=== PATIENT | female | born 1995 ===

== ENCOUNTER 2019-02-13 03:51 | Inpatient (IN) | payer OTHER ==
[2019-02-13] MEDS ORDERED: LACTATED RINGERS 2,000 ML ONE (03:56)
[2019-02-13] MEDS: LACTATED RINGERS 1,000 ML IV SCH ×2 (04:00→04:47)
[2019-02-13] MEDS ORDERED: BRETHINE SUB-Q ONE (04:03)
[2019-02-13] MEDS ORDERED: PEPCID IV ONE (04:03)
[2019-02-13] MEDS ORDERED: BRETHINE ONE (04:03)
[2019-02-13] MEDS ORDERED: REGLAN IV ONE (04:03)
[2019-02-13] MEDS ORDERED: BICITRA PO ONE (04:03)
[2019-02-13] MEDS ORDERED: QUELICIN ONE (04:18)
[2019-02-13] MEDS ORDERED: DIPRIVAN 10 MG/ML IV ONE (04:19)
[2019-02-13 04:25] LABS: Basophils # (Auto) 0.1 K/mm3 (0.0-0.1); Basophils % (Auto) 0.5 % (0.0-1.8); Eosinophils # (Auto) 0.1 K/mm3 (0.0-0.4); Eosinophils % (Auto) 0.4 % (0.0-4.3); Hematocrit 35.7 % (30.3-42.9); Lymphocytes # (Auto) 2.2 K/mm3 (1.2-5.4); Lymphocytes % (Auto) 16.5 % (13.4-35.0); Mean Corpuscular HGB Conc 34 % (30-34); Mean Corpuscular Volume 82 fl (79-97); Monocytes # (Auto) 0.5 K/mm3 (0.0-0.8); Monocytes % (Auto) 4.1 % (0.0-7.3); Platelet Count 264 K/mm3 (140-440); Red Blood Count 4.36 M/mm3 (3.65-5.03); Red Cell Distribution Width 15.9 % (13.2-15.2)
[2019-02-13] MEDS ORDERED: PITOCin/NS 20 UNIT/1000ML DRIP 20 UNITS/1,000 ML BAG IV SCH ×2 (05:00→07:00)
[2019-02-13] MEDS ORDERED: ANCEF/STERILE WATER 2 GM/20 ML 2 GM/20 ML SYRINGE IV NR (05:00)
[2019-02-13 05:19] LABS: Amphetamine Screen,Urine PRESUMPTIVE NEGATIVE; Benzodiazepines Screen,Urine PRESUMPTIVE NEGATIVE; Cannabinoid Screen,Urine PRESUMPTIVE NEGATIVE; Cocaine Screen,Urine PRESUMPTIVE NEGATIVE; Methadone Screen,Urine PRESUMPTIVE NEGATIVE; Opiate Screen,Urine PRESUMPTIVE NEGATIVE
--- NOTE | 2019-02-13 05:20 | Anesthesia Day of Surgery ---
Anesthesia Day of Surgery - Day of Surgery Patient Examined: Yes Patient H&P Reviewed: Yes Patient is NPO: Yes
[2019-02-13] MEDS ORDERED: ZOFRAN ONE (05:25)
[2019-02-13] MEDS ORDERED: VERSED ONE (05:26)
[2019-02-13] MEDS ORDERED: BENADRYL ONE (05:26)
[2019-02-13] MEDS ORDERED: TORADOL ONE (05:26)
[2019-02-13 05:32] LABS: Alanine Aminotransferase 11 units/L (7-56); Albumin 2.9 g/dL (3.9-5); BUN/Creatinine Ratio 21; Blood Urea Nitrogen 19 mg/dL (7-17); Calcium 8.7 mg/dL (8.4-10.2); Hemolysis Index 74
[2019-02-13] MEDS ORDERED: DILAUDID ONE ×2 (05:45→05:49)
[2019-02-13] MEDS ORDERED: XYLOCAINE MPF 2% ONE (05:48)
[2019-02-13] MEDS ORDERED: PHENERGAN PR PRN ×2 (06:17→06:30)
[2019-02-13] MEDS ORDERED: SENOKOT PO PRN (06:17)
[2019-02-13] MEDS ORDERED: MYLICON PO PRN (06:17)
[2019-02-13] MEDS ORDERED: NARCAN 0.4 MG/1 ML IV PRN ×2 (06:17→06:30)
[2019-02-13] MEDS ORDERED: MILK OF MAGNESIA PO PRN (06:17)
[2019-02-13] MEDS ORDERED: ZOFRAN IV PRN ×2 (06:17→06:30)
[2019-02-13] MEDS ORDERED: ANUCORT-HC PR PRN (06:17)
[2019-02-13] MEDS ORDERED: TUCKS PAD TP PRN (06:17)
[2019-02-13] MEDS ORDERED: MORPHINE IV PRN ×2 (06:17)
[2019-02-13] MEDS ORDERED: TORADOL IV PRN (06:17)
[2019-02-13] MEDS ORDERED: LANSINOH TP PRN (06:17)
[2019-02-13] MEDS ORDERED: TYLENOL PO PRN (06:17)
--- NOTE | 2019-02-13 06:29 | History and Physical Report ---
History of Present Illness Date of examination: 02/13/19 Date of admission: 02/13/19 04:03 Chief complaint: SIUP at 38 weeks and 6 days gestation in active labor. Previous C/section. No care. History of present illness: Patient is a 23 year old , LMP unknown, EDC 02/21/19 at 38 weeks and 6 days gestation who presented to triage complaining of having bleeding and contractions. She denied any fluid leakage. She had a previous C/section. She was pat every 2-3 minutes. FHT showed severe variable decelerations but recovered to a 140's baseline with no further decelerations after IV hydration and oxygen were given. I was called to assess the patient. Her cervix was 8 cm/90%/-1. She was counselled for repeat C/section. On admission, she stated that she had care at [facility] but no records are available. Then, upon further questioning about the , she said that she did not have any care but she went to a center early in the where she had a sonogram which gave her 18 weeks gestation and EDC of 02/21/19. She has not had any care after that. She does not want the baby and she does not want to see or interact with him. She is giving the baby to the baby's father who is on his way to the hospital. Past History Past Surgical History: section Family/Genetic History: none Social history: other (Social issues which patient did not discuss. She does not want the baby. The father will be taking the baby.) - Obstetrical History Expected Date of Delivery: 02/21/19 Actual Gestation: 38 Week(s) 6 Day(s) : 2 Para: 1 Number of Living Children: 1 Medications and Allergies Allergies Allergy/AdvReac Type Severity Reaction Status Date / Time No Known Allergies Allergy Verified 02/13/19 04:02 Active Meds: Active Medications Oxytocin/Sodium Chloride (Pitocin/Ns 20 Unit/1000ml Drip) 20 units in 1,000 mls @ 0 mls/hr IV TITR ALEJANDRO Lactated Ringer's (Lactated Ringers) 1,000 mls @ 2,250 mls/hr IV PREOP ALEJANDRO Stop: 02/14/19 05:27 Last Admin: 02/13/19 04:47 Dose: 2,250 mls/hr Documented by: - Vital Signs Vital signs: Vital Signs BP 139/91 02/13/19 03:52 Temp Pulse Resp BP Pulse Ox 118 H 126/67 02/13/19 04:49 02/13/19 04:49 - Physical Exam Cardiovascular: Normal S1, Normal S2 Lungs: Positive: Clear to auscultation Vulva: both: normal Adnexa: both: normal Deep Tendon Reflex Grade: Normal +2 - Obstetrical FHR: category 1 Uterine Contraction Monitor Mode: External Cervical Dilatation: 8 Cervical Effacement Percentage: 90 station: -1 Uterine Contraction Pattern: Regular Uterine Contraction Intensity: Strong/Firm Results Result Diagrams: 02/13/19 04:00 02/13/19 04:00 Abnormal lab results 02/13/19 02/13/19 Range/Units 04:00 04:00 WBC 13.2 H (4.5-11.0) K/mm3 MCH 27 L (28-32) pg RDW 15.9 H (13.2-15.2) % Seg Neutrophils % 78.5 H (40.0-70.0) % Seg Neutrophils # 10.4 H (1.8-7.7) K/mm3 Carbon Dioxide 19 L (22-30) mmol/L BUN 19 H (7-17) mg/dL Alkaline Phosphatase 198 H (35-129) units/L Albumin 2.9 L (3.9-5) g/dL All other labs normal. Assessment and Plan - Patient Problems (1) 38 weeks gestation of Current Visit: Yes Status: Acute (2) Active labor Current Visit: Yes Status: Acute (3) Previous section Current Visit: Yes Status: Acute Plan to address problem: Admit to labor floor. Routine preop and labs. IV hydration. Keep NPO. monitoring. Patient was counselled for repeat C/section. Risks, benefits, and alternatives of the procedure were discussed in detail with the patient which included but not limited to the risk of infection, hemorrhage requiring blood transfusion, injury to the bowel or bladder and blood vessels. The patient expressed understanding, her questions were answered, and she gave informed consent. Anesthesia notifie (4) No care in current Current Visit: Yes Status: Acute (5) Obesity Current Visit: Yes Status: Acute Qualifiers: Obesity type: due to excess calories
[2019-02-13] MEDS ORDERED: DILAUDID IV PRN ×2 (06:30)
[2019-02-13] MEDS ORDERED: PHENERGAN PO PRN (06:30)
--- NOTE | 2019-02-13 06:30 | Post Anesthesia Evaluation ---
- Post Anesthesia Evaluation Patient Participated: Yes Airway Patent: Yes Stable Respiratory Function: Yes Nausea/Vomiting: No Temp > 96.8F: Yes Pain Manageable: Yes Adequeate Hydration: Yes Anesthesia Complications: No Block Receding Appropriately: Yes Patient on Ventilator: No
--- NOTE | 2019-02-13 06:30 | Anesthesia Consultation ---
Anesthesia Consult and Med Hx Date of service: 02/13/19 - Airway Anesthetic Teeth Evaluation: Good ROM Head & Neck: Adequate Mental/Hyoid Distance: Adequate Mallampati Class: Class II Intubation Access Assessment: Good - Pulmonary Exam CTA: Yes - Cardiac Exam Cardiac Exam: RRR - Pre-Operative Health Status ASA Pre-Surgery Classification: ASA2, Emergency Proposed Anesthetic Plan: Epidural, Spinal - Pulmonary Hx Asthma: No - Cardiovascular System Hx Hypertension: No - Central Nervous System Hx Seizures: No Hx Psychiatric Problems: No - Endocrine Hx Renal Disease: No Hx Hypothyroidism: No Hx Hyperthyroidism: No - Hematic Hx Anemia: No Hx Sickle Cell Disease: No - Other Systems Hx Alcohol Use: No
[2019-02-13 06:34] LABS: Hepatitis C Virus Antibody Non-Reactive (NonReactive)
--- NOTE | 2019-02-13 06:42 | Operative Report ---
Operative Report Operative Report: Preoperative diagnosis 1. SIUP at 38 weeks and 6 days gestation in active labor. 2. Previous C/section. 3. No care. 4. Obesity. Postoperative diagnosis: 1. SIUP at 38 weeks and 6 days gestation in active labor. 2. Previous C/section. 3. Meconium amniotic fluid. 4. No care. 5 Obesity. Procedure: Repeat low-transverse section. Surgeon: Dr. Man Job Placement Specialist: none Anesthesia: epidural. IVF: RL 1000 cc EBL: 300 cc Urine: 100 cc clear Complications: none. Intraoperative findings: 1. A male infant found in an CHRIS position, delivered at 5:23 AM, Apgars 8 at 1 minute and 9 at 5 minutes, weight 5 lbs. 9 oz. 2. Normal fallopian tubes and ovaries bilaterally. Procedure details: Risks, benefits, and alternatives of the procedure were discussed in detail with the patient which included but not limited to the risk of infection, hemorrhage requiring blood transfusion, injury to the bowel or bladder and blood vessels. The patient expressed understanding, her questions were answered, and she gave informed consent. The patient was taken to the operating room with an IV fluid infusing Ringers lactate. In the operating room, she was placed in a sitting position and given epidural anesthesia. She was then placed in a dorsal supine position with a leftward tilt. Peterson catheter in Venodyne boots were placed. The abdomen was washed and she was prepared and draped in usual sterile fashion. After confirming adequate anesthesia, the Pfannenstiel skin incision was made in the lower abdomen about 2 cm above the pubic symphysis using the scalpel. This incision was carried down to the underlying fascia using the Bovie. The fascia was opened bilaterally in a curvilinear fashion using the Bovie. 2 straight Kocker clamps were used to grasp the upper edge of the fascia from which the underlying rectus abdominis muscles was dissected off using the Bovie. A simil ar procedure was done with the lower edge of the fascia to dissect the underlying rectus abdominis muscle. The muscle was bluntly from the midline by pulling. The parietal peritoneum was grasped with 2 hemostat clamps and entered sharply using Metzenbaum scissors. A quick survey of the anatomy revealed a gravid uterus, normal fallopian tubes and ovaries bilaterally. A bladder flap was created. Damion'O retractor was placed in the incision for proper visualization. A low transverse incision was made in the lower uterine segment using the scalpel and extended bilaterally in a curvilinear fashion using bandage scissors. There was scant amount of meconium amniotic fluids. The was found in an CHRIS position, the head was delivered atraumatically followed by the delivery of the shoulders and the rest of the body at 5:23 AM. The cord was clamped 2 and cut and the infant was handed off to the waiting shearing shed hand. The infant was a male, Apgars were 8 at 1 minute and 9 at 5 minutes, weight was 5 pounds and 9 ounces. Cord blood was collected. The placenta was delivered manually and it was complete with a three-vessel cord. The uterine cavity was cleaned of clots and debris using dry lap sponges. The uterine incision was repaired in a running locked fashion using 0 Vicryl sutures. A second layer of imbrication was placed. The gutters were cleaned of clots and debris using dry lap sponges. After confirming adequate hemostasis, the instruments were removed from the abdominal cavity. The rectus muscle was reapproximated in an interrupted fashion using 0 Vicryl sutures. The fascia was closed in a running fashion using 0 Vicryl sutures. The subcutaneous adipose layer was closed with 2.0 chromic suture. The skin was closed with jong. Sterile dressing was placed. The counts of laps, needles, sponges, and instruments were correct 2. The patient tolerated the procedure well, she was taken to the recovery room in a stable condition.
[2019-02-13] MEDS ORDERED: SODIUM CHLORIDE FLUSH SYRINGE 10 ML IV PRN ×2 (07:00)
[2019-02-13] MEDS: FEOSOL PO SCH (10:14)
[2019-02-13] MEDS: PRENATAL VITAMIN PO SCH (10:14)
[2019-02-13] MEDS: TORADOL IV PRN ×2 (11:10→16:43)
[2019-02-13 16:45] LABS: Hematocrit 26.6 % (30.3-42.9); Hemoglobin 9.2 gm/dl (10.1-14.3)
[2019-02-13] MEDS: PERCOCET 5/325 PO PRN (19:53)
[2019-02-14] MEDS: IBUPROFEN PO PRN ×3 (00:09→17:06)
[2019-02-14] MEDS: FEOSOL PO SCH (09:46)
[2019-02-14] MEDS: PRENATAL VITAMIN PO SCH (09:46)
[2019-02-14] MEDS: PERCOCET 5/325 PO PRN ×2 (09:49→17:08)
--- NOTE | 2019-02-14 10:30 | Progress Note ---
Assessment and Plan - Patient Problems (1) S/P repeat low transverse Current Visit: Yes Status: Acute Plan to address problem: POD 1 - stable Continue routine postop orders Ambulation encouraged, as tolerated Abdominal binder ordered Anticipate discharge in 24 to 48 hours (2) Anemia due to blood loss, acute Current Visit: Yes Status: Acute Plan to address problem: Asymptomatic Continue iron therapy Subjective - Subjective Date of service: 02/14/19 Principal diagnosis: POD #1; s/p Repeat LTCS Interval history: see H&P and Operative report Patient reports: appetite normal, voiding normally, flatus, pain poorly controlled, ambulating normally, no dizzy ambulation, no bowel movement Objective - Vital Signs Latest vital signs: Vital Signs Temp Pulse Resp BP BP Pulse Ox 02/14/19 09:49 20 02/14/19 09:48 98.3 F 92 H 18 110/63 98 02/14/19 09:47 20 02/14/19 08:56 98.3 F 94 H 18 110/63 98 02/13/19 23:42 98.8 F 97 H 20 136/88 95 02/13/19 20:19 97.5 F L 82 18 112/71 97 02/13/19 17:06 98.4 F 94 H 16 122/77 95 Intake and Output 02/13/19 02/14/19 02/14/19 23:59 07:59 15:59 Intake Total 1040 240 Output Total 500 1000 Balance 540 -760 Intake: Oral 680 Intake, Free Water 360 240 Output: Urine 500 1000 Void 500 1000 Other: Total, Intake Amount 680 Total, Output Amount 500 600 - Exam Cardiovascular: Present: Regular rate Lungs: Present: Clear to auscultation, Normal air movement Abdomen: Present: normal appearance, soft Vulva: both: normal Uterus: Present: normal, firm, fundal height at umbilicus Extremities: Present: normal Incision: Present: normal, dry, intact, dressed Comments: small lochia - Labs Labs: Abnormal lab results 02/13/19 Range/Units 16:33 Hgb 9.2 L (10.1-14.3) gm/dl Hct 26.6 L D (30.3-42.9) %
[2019-02-15] MEDS: IBUPROFEN PO PRN ×2 (05:39→18:01)
[2019-02-15] MEDS: PERCOCET 5/325 PO PRN ×2 (05:40→15:32)
[2019-02-15] MEDS: FEOSOL PO SCH (10:27)
[2019-02-15] MEDS: PRENATAL VITAMIN PO SCH (10:27)
--- NOTE | 2019-02-15 11:31 | Progress Note ---
Assessment and Plan A: /postop day 2 S/P repeat low transverse section. Anemia secondary to and blood loss. P: Continue iron supplementation. Encouraged ambulation. Subjective - Subjective Date of service: 02/15/19 Principal diagnosis: POD #2; s/p Repeat LTCS Interval history: /postop day 2 S/P repeat low transverse section. Doing well. Patient reports a small amount of lochia. Voiding without difficulty, ambulating well, tolerating a regular diet without nausea or vomiting, passing gas. Patient denies headache, chest pain, cough, shortness of breath, dizziness, abdominal pain, leg pain, heavy bleeding, or any other problems. Patient reports: appetite normal, voiding normally, pain well controlled, flatus, ambulating normally, no dizzy ambulation, no nauseated [place]: doing well Objective - Vital Signs Latest vital signs: Vital Signs Temp Pulse Resp BP BP Pulse Ox 02/15/19 08:40 97.9 F 74 18 128/74 99 02/14/19 23:45 98.3 F 88 18 116/71 98 02/14/19 18:00 98.7 F 83 18 123/76 02/14/19 17:08 20 02/14/19 17:06 20 Intake and Output 02/14/19 02/15/19 02/15/19 23:59 07:59 15:59 Intake Total 240 240 Balance 240 240 Intake: Oral 240 240 Other: Total, Intake Amount 240 240 # Voids Void 1 1 - Exam Cardiovascular: Present: Regular rate, Normal S1, Normal S2, No murmurs Lungs: Present: Clear to auscultation Abdomen: Present: normal appearance, soft. Absent: distention, tenderness, guarding, rigidity Uterus: Present: normal, firm, fundal height below umbilicus. Absent: bogginess, tenderness Extremities: Present: normal. Absent: tenderness, edema Incision: Present: normal, dry, intact
[2019-02-16] MEDS: IBUPROFEN PO PRN ×2 (05:44→11:21)
[2019-02-16] MEDS: PERCOCET 5/325 PO PRN ×2 (05:44→11:20)
[2019-02-16 09:08] VITALS: BP 131/66
[2019-02-16] MEDS: PRENATAL VITAMIN PO SCH (10:32)
[2019-02-16] MEDS: FEOSOL PO SCH (10:32)
--- NOTE | 2019-02-16 13:28 | Progress Note ---
Assessment and Plan A: /postop day 3 S/P repeat low transverse section. Anemia secondary to and blood loss. Back and abdominal pain relieved by BM. P: Patient's back and abdominal pain and results of urinalysis, urine culture, CBC, CMP discussed with Dr. Richards. Dr. Richards states it is OK to discharge patient home today. Advised patient to avoid intercourse, lifting, driving, stair climbing, heavy housework, tub baths (pt. may take showers). Advised patient re: care of incision and activity restrictions. Advised patient to co ntinue taking her vitamins and iron supplements at home. Warning signs discussed with patient and she is to return promptly if any problems. Advised patient to follow up at [facility] in 1 week (pt. states she wants to go to ). Patient voiced understanding of all instructions. Subjective - Subjective Date of service: 02/16/19 Principal diagnosis: POD #3; s/p Repeat LTCS Interval history: /postop day 3 S/P repeat low transverse section. Patient reports a small amount of lochia and she denies clots. Patient reports onset of lower back pain and abdominal pain this morning but now states this was totally relieved by having a BM. Passing gas; had BM. Voiding without difficulty, ambulating well, tolerating a regular diet without nausea or vomiting. Patient denies headache, chest pain, cough, shortness of breath, dizziness, abdominal pain, leg pain, or heavy bleeding. Patient reports: appetite normal, voiding normally, pain well controlled, flatus, bowel movement, ambulating normally, no dizzy ambulation, no nauseated : doing well Objective - Vital Signs Latest vital signs: Vital Signs Temp Pulse Resp BP BP Pulse Ox 02/16/19 09:07 98.1 F 67 18 131/66 100 02/16/19 01:38 98.0 F 78 18 127/79 99 02/15/19 15:38 97.6 F 78 18 116/67 99 - Exam Cardiovascular: Present: Regular rate, Normal S1, Normal S2, No murmurs Lungs: Present: Clear to auscultation Abdomen: Present: normal appearance, soft, normal bowel sounds. Absent: distention, tenderness, guarding, rigidity Uterus: Present: normal, firm, fundal height below umbilicus. Absent: bogginess, tenderness Extremities: Present: normal, edema (mild pedal edema bilaterally). Absent: tenderness Incision: Present: normal, dry, intact
[2019-02-16 14:15] LABS: Basophils % (Auto) 0.1 % (0.0-1.8); Eosinophils # (Auto) 0.2 K/mm3 (0.0-0.4); Eosinophils % (Auto) 2.6 % (0.0-4.3); Hematocrit 29.7 % (30.3-42.9); Hemoglobin 10.1 gm/dl (10.1-14.3); Lymphocytes # (Auto) 1.1 K/mm3 (1.2-5.4); Lymphocytes % (Auto) 14.4 % (13.4-35.0); Mean Corpuscular HGB Conc 34 % (30-34); Mean Corpuscular Volume 82 fl (79-97); Monocytes # (Auto) 0.3 K/mm3 (0.0-0.8); Monocytes % (Auto) 3.6 % (0.0-7.3); Platelet Count 249 K/mm3 (140-440); Red Blood Count 3.62 M/mm3 (3.65-5.03); Red Cell Distribution Width 15.9 % (13.2-15.2)
[2019-02-16 14:39] LABS: Alanine Aminotransferase 39 units/L (7-56); Albumin 2.9 g/dL (3.9-5); BUN/Creatinine Ratio 26; Blood Urea Nitrogen 18 mg/dL (7-17); Calcium 8.7 mg/dL (8.4-10.2); Hemolysis Index 0
[2019-02-16 14:43] LABS: Bacteria,Urine 1+ /HPF (Negative); Bilirubin,Urine NEG (Negative); Blood,Urine LG (Negative); Color,Urine Yellow (Yellow); Mucus,Urine FEW /HPF; Urobilinogen,Urine < 2.0 mg/dL (<2.0)
--- NOTE | 2019-02-16 15:13 | Discharge Summary ---
Providers - Providers Date of Admission: 02/13/19 04:03 Date of discharge: 02/16/19 Attending physician: ARLETH AHUMADA MD 02/13/19 09:06 Consult to Case Management [CONS] Urgent Services Needed at Discharge: Director Of Residential Services Notified:: patient case manager Phone number called:: [phone] Was contact made?: No Time called:: 09:08 Comment:: will continue to attempt to contact. Primary care physician: [facility] Hospitalization Reason for admission: active labor Delivery: Procedure: repeat low transverse Incision: normal, dry, intact Other procedures: none complications: none Discharge diagnosis: IUP at term delivered baby: male Pertinent studies: Labs Hospital course: Stable hospital course Condition at discharge: Good Disposition: DC-01 TO HOME OR SELFCARE Plan - Discharge Medications Prescriptions: Ibuprofen [Motrin] 800 mg PO Q8HR PRN #30 tablet PRN Reason: Pain, Moderate (4-6) oxyCODONE /ACETAMINOPHEN [Percocet 5/325] 1 tab PO Q4HR #14 tab - Provider Discharge Summary Activity: routine, no sex for 6 weeks, no heavy lifting 4 weeks, no strenuous exercise Diet: routine Instructions: routine Additional instructions: Continue taking your vitamins and iron supplements at home. Call your doctor immediately for: * Fever > 100.5 * Heavy vaginal bleeding ( >1 pad per hour) * Severe persistent headache * Shortness of breath * Reddened, hot, painful area to leg or breast * Drainage or odor from incision. * Keep incision clean and dry at all times and follow doctor's instructions regarding bathing/showering - Follow up plan Follow up: ARLETH AHUMADA MD [Staff Physician] - 7 Days Forms: [facility] Discharge Summary
== END 2019-02-16 16:30 | disposition home or self-care (01) | DRG 787 ==
LOC: TRG 03:51 → APU 04:03 → OB 08:27
PROVIDERS: ADMIT Obstetrics & Gynecology; ATTEND Obstetrics & Gynecology
PROC: 10D00Z1 Extraction of Products of Conception, Low, Open Approach (ICD-10-PCS; principal; 2019-02-13)
DX: O34.211 Maternal care for low transverse scar from previous cesarean delivery (principal); D62 Acute posthemorrhagic anemia; O76 Abnormality in fetal heart rate and rhythm complicating labor and delivery; O99.214 Obesity complicating childbirth; E66.9 Obesity, unspecified; O77.0 Labor and delivery complicated by meconium in amniotic fluid; Z3A.38 38 weeks gestation of pregnancy; Z37.0 Single live birth; O99.02 Anemia complicating childbirth
CPT/HCPCS: 36415; 80053; 80307; 81001; 85014; 85018; 85025; 86592; 86706; 86762; 86803; 86850; 86900; 86901; 87806; G0378; J0330; J1170; J1200; J1885; J2250; J2405; J2590; J2704; J2765; J3105; J7120